=== PATIENT | male | born 1940 | race Caucasian/White ===

== ENCOUNTER 2018-08-31 05:26 | Day surgery (SDC) | payer OTHER ==
[~2018-08-31] VITALS: Ht 193 cm; Wt 90.3 kg
--- NOTE | ~2018-08-31 | H ---
[facility] [place] [address] HISTORY AND PHYSICAL Name: FRANCES RICHARD Room #: [facility] M.R.#: [id number] Admission: Attend Phys: Zcah Ness MD Discharge: Date of : 42 Report #: [id number] THIS REPORT FOR: //name// CC: Brock Ness DATE OF SERVICE: 08/31/[address] Brock Parks, Dr. Zach Ness. DATE OF ADMISSION AND SURGERY: 08/31/2018. CHIEF COMPLAINT: Left groin bulge. HISTORY OF PRESENT ILLNESS: The patient is a 78-year-old white male who for about a year has noticed a left groin bulge with some occasional pain. He denies any recent changes in bowel or bladder habits. He does have a history of benign prostatic hypertrophy. No previous history of any hernias. The saw his primary care physician, Dr. Brock Parks, who recommended surgical consultation. PAST MEDICAL HISTORY: Sciatica, hypertension, hyperlipidemia, gastroesophageal reflux disease, erectile dysfunction, prostate nodule and diverticulosis. PAST SURGICAL HISTORY: He has had multiple adenomas on colonoscopies. MEDICATIONS: Rosuvastatin, Rapaflo, Avodart, metformin, losartan, multivitamin, vitamin B complex and glucosamine. ALLERGIES: No known drug allergies. FAMILY HISTORY: Noncontributory. SOCIAL HISTORY: . Does not smoke, drinks alcohol occasionally. He is retired. REVIEW OF SYSTEMS: Pertinent positives as above. Full review of systems, otherwise negative. PHYSICAL EXAMINATION: GENERAL: This is a well-developed, well-nourished, white male in no acute distress. VITAL SIGNS: Stable. He is afebrile. Height 76 inches, weight is 205 pounds, BMI of 24.9. HEENT: Sclerae are nonicteric. Mucous membranes moist and pink. NECK: There is no adenopathy, no thyromegaly. [facility] [address] [place] [address] HISTORY AND PHYSICAL Name: FRANCES RICHARD Room #: [facility] M.R.#: [id number] Admission: Attend Phys: Zach Ness MD Discharge: Date of : 42 Report #: [id number] LUNGS: Clear to auscultation bilaterally. Normal excursion. CARDIOVASCULAR: Regular rate and rhythm. No murmurs, S3, S4, no PMI. ABDOMEN: Soft, flat, nontender, no palpable masses, no organomegaly, no abdominal wall hernias. GENITOURINARY: Normal scrotum, phallus and testes. There was a moderate-sized tender partially reducible left inguinal hernia. EXTREMITIES: No clubbing, cyanosis or edema. NEUROLOGIC: Intact with a clear mental status, no focal motor or sensory deficits. IMPRESSION: A 78-year-old white male with a left inguinal hernia. I fully discussed with the patient and his the diagnosis, prognosis, and treatment options. Recommend left inguinal hernia repair with mesh. They state they understand and agreed to proposed surgery. PLAN: We will perform a left inguinal hernia repair with mesh under local IV sedation as an outpatient at [facility]. The procedure and its risks, benefits and possible complications including use of mesh were fully discussed with the patient's . They state understanding and agreed to proposed surgery. By: [id number] Zach Ness MD /nt
--- NOTE | ~2018-08-31 | O ---
[facility] [place] [address] OPERATIVE REPORT Name: FRANCES RICHARD Room #: 150-4 [facility] M.R.#: [id number] Admission: 08/31/18 Attend Phys: Zach Ness MD Discharge: Date of : 42 Report #: [id number] THIS REPORT FOR: //name// CC: Brock Ness DATE OF SERVICE: 08/31/[address] Zach Ness and Dr. Brock Parks. PREOPERATIVE DIAGNOSIS: Left inguinal hernia. 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 PROCEDURE: Left inguinal hernia repair with Prolene hernia system mesh and excision of left cord lipoma. SURGEON: Zach Ness MD ANESTHESIA: Local IV sedation. DESCRIPTION OF PROCEDURE: The patient was brought to the operating room and placed on operative table in the supine position. Sequential compression devices were in place for DVT prophylaxis. There was no indication for preoperative antibiotics. The patient underwent IV sedation. Left inguinal area was prepped and draped in a sterile fashion. Skin and subcutaneous tissue were then infiltrated with 0.5% Marcaine and 1% Xylocaine in a 1:1 mixture. Left inguinal skin incision was then performed using #10 scalpel blade. Hemostasis obtained using electrocautery. Dissection was carried down through subcutaneous tissue using the electrocautery. The external oblique fascia was then identified and incised with a knife and opened with the Metzenbaum scissors. The ilioinguinal nerve was identified, dissected free and preserved. The cord was then elevated and held into place with a [place] drain. Cremasteric muscle fibers were then split in the direction of their fibers using clamp and electrocautery. A cord lipoma was identified, dissected free, clamped, excised and tied with a 2-0 chromic tie. An indirect inguinal hernia sac was identified, dissected free and reduced back through the internal ring. A large Prolene Hernia System mesh was then inserted through the internal ring and the underlay patch was then deployed in the preperitoneal space. The connector was left in the internal ring and the overlay patch was then deployed into the inguinal canal. The mesh was secured to the pubic tubercle, superiorly and at the connector using simple interrupted 2-0 Vicryl sutures. The mesh was split and wrapped around the cord, secured to the inguinal ligament with simple interrupted 2-0 Vicryl suture. The cord and ilioinguinal nerve were then returned to the canal intact. The external oblique fascia was then closed using [facility] [address] [place] [address] OPERATIVE REPORT Name: FRANCES RICHARD Room #: 150-4 [facility].#: [id number] Admission: 08/31/18 Attend Phys: Zach Ness MD Discharge: Date of : 42 Report #: [id number] running 2-0 Vicryl suture. Alvaro's fascia was then reapproximated using 3 simple interrupted 2-0 chromic sutures and the skin then closed with a running 4-0 subcuticular Vicryl stitch. Wound was then dressed with Mastisol, 1/2-inch Steri-Strips cut in half, Telfa, 4 x 4 gauze, sponge and tape. The patient was then taken to recovery room awake, alert and in good condition. Estimated blood loss was approximately 5 mL and the patient tolerated procedure well. All sponge, lap and instrument counts correct x 2. By: [id number] Zach Ness MD /nt
--- NOTE | ~2018-08-31 | EKG ---
[address] [address] ELECTROCARDIOGRAM REPORT Name: FRANCES RICHARD Room #: 150-4 [facility]..#: [id number] Admission: 08/31/18 Attend Phys: Zach Ness MD Discharge: Date of : 42 Report #: [id number] THIS REPORT FOR: //name// [facility] Test Date: 2018-08-31 Test Time: 06:31:32 Pat Name: FRANCES RICHARD Department: Room: 150 4 Gender: M [employer] Agent: KE : 1940 Requested By: Zach Ness Order Number: [id number] MD: Dani Wilder Measurements Intervals [place] Rate: 67 P: -13 [place]: 129 QRS: 6 QRSD: 96 T: 42 QT: 403 QTc: 426 Interpretive Statements Sinus rhythm Abnormal R-wave progression, early transition Baseline wander in lead(s) V6 No previous ECG available for comparison Electronically Signed On 08-31-2018 8:01:39 EM[employer]OYMENT CASE MANAGER by Dani Wilder [email or web address] <ELECTRONICALLY SIGNED> By: Dani Wilder MD, [facility] 08/31/18 0801 0 0 Dani Wilder MD, [facility] /EPI
--- NOTE | ~2018-08-31 | PATH ---
[facility] [address] [place] [address] PATHOLOGY RPT PROCEDURE Name: FRANCES GONZALES Room #: [facility] M.R.#: [id number] Admission: 08/31/18 Date of : 42 Discharge: 08/31/18 Report #: [id number] Path Case #: [id number] [facility] Accession Number: [id number] . 01 Material submitted: . CORD LIPOMA . 01 Clinical history: . Inguinal hernia . 02 Diagnosis: Cord lipoma, resection: - Mature adipose tissue compatible with a lipoma. . (IUV:mml; 09/02/18) [facility]/09/02/2018 . 02 Electronically signed: . Marci Garay MD, Pathologist NPI- [id number] . 01 Gross description: . The specimen is received in formalin, labeled "Frances Gonzales cord lipoma". Received is a segment of predominantly encapsulated yellow-young lobulated tissue measuring 5.2 x 3.8 x 1.4 cm in greatest dimensions. Sectioning reveals yellow-young, lobulated cut surfaces with no grossly distinct nodules or lesions. The specimen is submitted representatively in cassette A1. (CAA; 09/01/2018) QAC/QAC . 02 Pathologist provided ICD-10: D17.6 . 02 CPT . 658304 Specimen Comment: A courtesy copy of this report has been sent to Specimen Comment: [phone], . Specimen Comment: Report sent to / DR CABA Performed at: [address] [facility], [place], [place] [id number] MD Zoran Jernigan MD Phone: [phone] Performed at: [address] [facility] [id number] MD Marci Garay MD Phone: [phone]
[~2018-08-31 05:26] MED LIST: ASPIR 8181 MG PO; B COMPLEX1 EACH PO; CRESTOR20 MG PO; DUTASTERIDE0.5 MG PO; GLUCOPHAGE XR500 M1 PO; GLUCOSAMINE SU500 MG PO; LOSARTAN-HCTZ1 EAC3 PO; MULTI VITAMIN1 EACH PO; RAPAFLO8 MG PO
[2018-08-31 07:00] VITALS: BP 148/71
[2018-08-31 07:04] LABS: CALCIUM 10.3 mg/dL (8.5-10.1); CREATININE 0.9 mg/dL (0.7-1.3); POTASSIUM 3.8 mmol/L (3.5-5.1)
[2018-08-31] MEDS ORDERED: NORCO 5-325 TA1 EACH PO (10:07)
[2018-08-31 10:20] VITALS: BP 148/71
== END 2018-08-31 11:05 | disposition home or self-care (01) ==
LOC: OR 05:26 → TBA 05:26 → OR 08:53
PROVIDERS: Surgery
DX: K40.90 Unilateral inguinal hernia, without obstruction or gangrene, not specified as recurrent (principal); D17.6 Benign lipomatous neoplasm of spermatic cord; I10 Essential (primary) hypertension; N40.0 Benign prostatic hyperplasia without lower urinary tract symptoms; E78.5 Hyperlipidemia, unspecified; K21.9 Gastro-esophageal reflux disease without esophagitis; Z87.19 Personal history of other diseases of the digestive system; Z79.899 Other long term (current) drug therapy; Z98.890 Other specified postprocedural states; Z79.82 Long term (current) use of aspirin
CPT/HCPCS: 50010; 50101; 50386; 50417; 52061; 56524; 56526; 56528; 62110; 62850; 70005